=== PATIENT | female | born 1950 | race Caucasian/White ===

== ENCOUNTER 2018-03-01 07:46 | Outpatient (CLI) | payer MEDICARE ==
[2018-03-01] MEDS ORDERED: ISOVUE-370 76%-LOCM 1 ML ONE (15:14)
== END 2018-03-01 07:47 | disposition home or self-care (01) ==
LOC: BICULT 07:46
PROVIDERS: ATTEND Family Medicine
DX: I71.2 Thoracic aortic aneurysm, without rupture (principal); R10.13 Epigastric pain; G89.29 Other chronic pain; R10.11 Right upper quadrant pain
CPT/HCPCS: 71275; 76705

== ENCOUNTER 2018-11-02 12:09 | Emergency (ER) | payer MEDICARE ==
[2018-11-02] MEDS ORDERED: cefTRIAXone\\ROCEPHIN 1 GM VIAL ONE (13:28)
--- NOTE | 2018-11-02 15:13 | RAD ---
CHEST 2 VIEWS: History Cough. Dyspnea. COMPARISON: 03/01/2018. FINDINGS: Cardiac silhouette and pulmonary vasculature are unremarkable. Mediastinum is midline. No confluent airspace consolidation, pneumothorax, or pleural fluid. residential monitor leads overlie the chest. IMPRESSION: No active cardiopulmonary abnormalities are demonstrated. POS: [email or web address]
== END 2018-11-02 13:52 | disposition home or self-care (01) ==
LOC: ERS 12:09
DX: J20.9 Acute bronchitis, unspecified (principal); G43.909 Migraine, unspecified, not intractable, without status migrainosus; M06.9 Rheumatoid arthritis, unspecified
CPT/HCPCS: 71046; 96361; 96374; J0696; J7620

== ENCOUNTER 2020-10-25 13:43 | Outpatient (CLI) | payer MEDICARE ==
--- NOTE | 2020-10-25 14:37 | BD ---
DEXA BONE MINERAL DENSITY STUDY: HISTORY: Osteoporosis screening. COMPARISON: None. FINDINGS: Lumbar Spine: BMD (g/cm2) L1 1.021 T-Score: 0.3 2.2 L2 1.076 T-Score: 0.4 2.6 L3 1.061 T-Score: -0.2 2.1 L4 1.059 T-Score: 0.0 2.3 L1-L4 1.055 T-Score: 0.1 2.3 Femoral Neck: 0.754 T-Score: -0.9 1.0 Total Femur: 0.846 T-Score: -0.8 -0.8 WHO classification: Normal. Impression: Normal bone mineral density. POS: MARIELY
== END 2020-10-25 13:44 | disposition home or self-care (01) ==
LOC: BICMAMMO 13:43
PROVIDERS: ATTEND Internal Medicine Hospice and Palliative Medicine
DX: Z13.820 Encounter for screening for osteoporosis (principal); G89.29 Other chronic pain
CPT/HCPCS: 77080

== ENCOUNTER 2022-12-22 12:55 | Emergency (ER) | payer MEDICARE ==
[2022-12-22 13:42] LABS: #Monocytes 0.7 thou/uL (0.11-0.59); #Neutrophils 5.5 thou/uL (1.40-6.50); %Basophils 0.2 % (0.0-1.0); %Eosinophils 0.6 % (0.0-10.0); %Lymphocytes 13.5 % (21.0-51.0); %Monocytes 9.3 % (0.0-10.0); %Neutrophils 76.3 % (42.0-75.0); Hemoglobin 14.2 g/dL (12.0-16.0); Mean Corpuscular HGB CONC 32.9 g/dL (32.0-36.0); Mean Corpuscular Hemoglobin 30.2 pg (27.0-31.0); Mean Corpuscular Volume 91.6 fl (78.0-98.0); Mean Platelet Volume 8.2 fL (7.4-10.4); Platelet Count 268 10x3/uL (130-400); RBC Distribution Width 12.6 % (11.5-14.5); White Blood Cell (WBC) Count 7.2 10x3/uL (4.8-10.8)
[2022-12-22 14:09] LABS: ALT (SGPT) 13 U/L (8-55); AST (SGOT) 22 U/L (5-34); Albumin 4.2 g/dL (3.4-4.8); Alkaline Phosphatase 93 U/L (40-110); Anion Gap 15 mmol/L (10-20); BUN (Urea Nitrogen) 10 mg/dL (9.8-20.1); Bilirubin, Total 0.5 mg/dL (0.2-1.2); Calc. Creatinine Clearance 0 mL/min (70-130); Calcium 9.6 mg/dL (7.8-10.44); Carbon Dioxide 24 mmol/L (23-31); Chloride 104 mmol/L (98-107); Estimated GFR 71; Globulin 3.8 g/dL (2.4-3.5); Glucose 153 mg/dL (83-110); Potassium 4.5 mmol/L (3.5-5.1); Sodium 138 mmol/L (136-145)
[2022-12-22 15:34] LABS: Bacteria/HPF None Seen HPF (None Seen); Bilirubin Negative (Negative); Blood, Urine 2+ (Negative); Clarity Clear (Clear); Glucose, Urine (Dipstick) Normal (Negative); Ketone, Urine Trace mg/dL (Negative); Leukocyte Negative Leu/uL (Negative); Nitrite Negative (Negative); Protein, Urine (Dipstick) 50 mg/dL (Neg-Trace); Specific Gravity, Urine 1.034 (1.002-1.036); Squamous Epithelial 0-3 HPF (0-3); WBC/HPF 0-3 HPF (0-3)
[2022-12-22 16:18] LABS: SARS-CoV-2 NAA Rapid Test DETECTED (NotDetected)
[2022-12-22] MEDS ORDERED: Acetaminophen 500 MG TAB ONE (17:32)
== END 2022-12-22 18:15 | disposition home or self-care (01) ==
LOC: ERS 12:55
DX: U07.1 COVID-19 (principal); R31.9 Hematuria, unspecified; G43.909 Migraine, unspecified, not intractable, without status migrainosus
CPT/HCPCS: 0240U; 71045; 80053; 83605; 83880; 84484; 85025; 93005; 99285; 36415; 81003; 81015

== ENCOUNTER 2023-12-12 20:45 | Observation (INO) | payer MEDICARE ==
[~2023-12-12 20:45] MED LIST: Iopamidol-370 76% 500 ML MDV (1 ML CHARGE) ONE
[2023-12-12 23:05] LABS: #Basophils 0.1 thou/uL (0.0-0.2); #Eosinphils 0.1 thou/uL (0.0-0.7); #Monocytes 0.6 thou/uL (0.11-0.59); #Neutrophils 6.2 thou/uL (1.40-6.50); %Basophils 0.7 % (0.0-1.0); %Eosinophils 1.1 % (0.0-10.0); %Lymphocytes 14.9 % (21.0-51.0); %Monocytes 7.1 % (0.0-10.0); Hematocrit 36.7 % (36.0-47.0); Hemoglobin 11.8 g/dL (12.0-16.0); Mean Corpuscular HGB CONC 32.2 g/dL (32.0-36.0); Mean Corpuscular Hemoglobin 30.6 pg (27.0-31.0); Mean Corpuscular Volume 95.1 fl (78.0-98.0); Mean Platelet Volume 10.4 fL (7.4-10.4); Platelet Count 266 10x3/uL (130-400); RBC Distribution Width 13.6 % (11.5-14.5); Red Blood Cell (RBC) Count 3.86 mill/uL (4.20-5.40); White Blood Cell (WBC) Count 8.2 10x3/uL (4.8-10.8)
[2023-12-12 23:29] LABS: ALT (SGPT) 10 U/L (8-55); AST (SGOT) 13 U/L (5-34); Albumin 3.9 g/dL (3.4-4.8); Alkaline Phosphatase 90 U/L (40-110); Anion Gap 11 mmol/L (10-20); BUN (Urea Nitrogen) 11 mg/dL (9.8-20.1); Bilirubin, Total 0.4 mg/dL (0.2-1.2); Calc. Creatinine Clearance 0 mL/min (70-130); Calcium 9.1 mg/dL (7.8-10.44); Carbon Dioxide 24 mmol/L (23-31); Chloride 107 mmol/L (98-107); Estimated GFR 54; Globulin 3.1 g/dL (2.4-3.5); Glucose 139 mg/dL (83-110); Magnesium 2.1 mg/dL (1.6-2.6); Potassium 4.6 mmol/L (3.5-5.1); Sodium 137 mmol/L (136-145)
[2023-12-12 23:31] LABS: Troponin I Less than 0.010 ng/mL (< 0.028)
[2023-12-12] MEDS ORDERED: Morphine 4 MG/ML VIAL ONE (23:33)
[2023-12-13] MEDS ORDERED: Ondansetron PF 4 MG/2 ML Vial IVP PRN (01:58)
[2023-12-13 04:07] LABS: #Basophils 0.1 thou/uL (0.0-0.2); #Eosinphils 0.1 thou/uL (0.0-0.7); #Monocytes 0.7 thou/uL (0.11-0.59); #Neutrophils 4.9 thou/uL (1.40-6.50); %Basophils 0.8 % (0.0-1.0); %Eosinophils 1.3 % (0.0-10.0); %Lymphocytes 25.9 % (21.0-51.0); %Monocytes 8.5 % (0.0-10.0); %Neutrophils 63.2 % (42.0-75.0); Hemoglobin 11.5 g/dL (12.0-16.0); Mean Corpuscular HGB CONC 31.9 g/dL (32.0-36.0); Mean Platelet Volume 10.4 fL (7.4-10.4); Platelet Count 251 10x3/uL (130-400); RBC Distribution Width 13.5 % (11.5-14.5); Red Blood Cell (RBC) Count 3.83 mill/uL (4.20-5.40); White Blood Cell (WBC) Count 7.7 10x3/uL (4.8-10.8)
[2023-12-13 04:28] LABS: Bacteria/HPF None Seen HPF (None Seen); Bilirubin Negative (Negative); Blood, Urine Negative (Negative); CAUTI Indications for Culture Alt mental st,lethar; Clarity Clear (Clear); Glucose, Urine (Dipstick) Normal (Negative); Ketone, Urine Negative (Negative); Leukocyte Negative Leu/uL (Negative); Nitrite Negative (Negative); Protein, Urine (Dipstick) Negative (Neg-Trace); RBC/HPF 0-3 HPF (0-3); Specific Gravity, Urine 1.042 (1.002-1.036); Squamous Epithelial 0-3 HPF (0-3); WBC/HPF 0-3 HPF (0-3); pH, Urine 8.5 (5.0-9.0)
[2023-12-13 04:30] LABS: Anion Gap 12 mmol/L (10-20); BUN (Urea Nitrogen) 13 mg/dL (9.8-20.1); Calc. Creatinine Clearance 78 mL/min (70-130); Carbon Dioxide 24 mmol/L (23-31); Chloride 106 mmol/L (98-107); Estimated GFR 59; Glucose 132 mg/dL (83-110); Potassium 4.6 mmol/L (3.5-5.1); Sodium 137 mmol/L (136-145)
[2023-12-13 04:35] LABS: Urine Culture Reflex No No
[2023-12-13] MEDS ORDERED: Nitroglycerin 0.4 MG TAB (25 Tab Bottle) SL PRN (05:15)
[2023-12-13 08:41] LABS: Troponin I Less than 0.010 ng/mL (< 0.028)
[2023-12-13] MEDS ORDERED: Clopidogrel Bisulfate 75 MG TAB ONE (08:46)
[2023-12-13] MEDS ORDERED: Lisinopril 5 MG TAB ONE (08:46)
[2023-12-13] MEDS ORDERED: Carvedilol 6.25 MG TAB ONE (08:46)
[2023-12-13] MEDS ORDERED: Aspirin Chewable 81 MG TAB ONE (08:47)
[2023-12-13] MEDS: Carvedilol 3.125 MG TAB PO SCH (08:56)
[2023-12-13] MEDS: Aspirin 81 mg Enteric Coated Tablet PO SCH (08:57)
[2023-12-13] MEDS: Lisinopril 2.5 MG TAB PO SCH (08:57)
[2023-12-13] MEDS: Clopidogrel Bisulfate 75 MG TAB PO SCH (08:57)
[2023-12-13] MEDS ORDERED: hydrALAZINE 20 MG/ML VIAL SLOW IVP PRN (10:27)
[2023-12-13 13:21] LABS: Troponin I Less than 0.010 ng/mL (< 0.028)
[2023-12-13 14:22] VITALS: BMI 31.1
[2023-12-13] MEDS: Atorvastatin Calcium 40 MG TAB PO SCH (20:55)
[2023-12-14] MEDS: Acetaminophen 325 MG TAB PO PRN (05:38)
[2023-12-14 05:52] LABS: #Eosinphils 0.1 thou/uL (0.0-0.7); #Monocytes 0.7 thou/uL (0.11-0.59); #Neutrophils 4.8 thou/uL (1.40-6.50); %Basophils 0.6 % (0.0-1.0); %Eosinophils 1.3 % (0.0-10.0); %Lymphocytes 20.3 % (21.0-51.0); %Monocytes 9.6 % (0.0-10.0); %Neutrophils 67.9 % (42.0-75.0); Mean Corpuscular HGB CONC 31.6 g/dL (32.0-36.0); Mean Corpuscular Hemoglobin 29.7 pg (27.0-31.0); Mean Corpuscular Volume 94.1 fl (78.0-98.0); Mean Platelet Volume 10.2 fL (7.4-10.4); Platelet Count 247 10x3/uL (130-400); RBC Distribution Width 13.6 % (11.5-14.5); Red Blood Cell (RBC) Count 4.04 mill/uL (4.20-5.40); White Blood Cell (WBC) Count 7.1 10x3/uL (4.8-10.8)
[2023-12-14 06:23] LABS: Anion Gap 12 mmol/L (10-20); BUN (Urea Nitrogen) 12 mg/dL (9.8-20.1); Calc. Creatinine Clearance 99 mL/min (70-130); Calcium 9.2 mg/dL (7.8-10.44); Carbon Dioxide 24 mmol/L (23-31); Chloride 104 mmol/L (98-107); Estimated GFR 81; Glucose 141 mg/dL (83-110); Sodium 136 mmol/L (136-145)
[2023-12-14] MEDS: Enoxaparin 40 MG (0.4 mL) SYRINGE SC SCH (08:18)
[2023-12-14] MEDS: Methocarbamol 500 MG TAB PO PRN (10:34)
[2023-12-14] MEDS: Fioricet 325/50/40 mg Tablet PO PRN (10:34)
[2023-12-14 12:03] VITALS: TEMP 97.8
[2023-12-14 16:00] VITALS: BP 127/77
== END 2023-12-14 16:55 | disposition home or self-care (01) ==
LOC: ERS 20:45 → ERHOLD 12-13 01:45 → 2SW 12-13 13:37
PROVIDERS: ADMIT Internal Medicine; ATTEND Internal Medicine
PROC: B24BZZZ Ultrasonography of Heart with Aorta (ICD-10-PCS; principal; 2023-12-14)
DX: I25.10 Atherosclerotic heart disease of native coronary artery without angina pectoris (principal); I11.0 Hypertensive heart disease with heart failure; I50.32 Chronic diastolic (congestive) heart failure; I25.2 Old myocardial infarction; E78.5 Hyperlipidemia, unspecified; G43.909 Migraine, unspecified, not intractable, without status migrainosus; G89.29 Other chronic pain; M54.9 Dorsalgia, unspecified; D64.9 Anemia, unspecified; E66.9 Obesity, unspecified; Z68.30 Body mass index [BMI] 30.0-30.9, adult; Z79.82 Long term (current) use of aspirin; Z79.899 Other long term (current) drug therapy
CPT/HCPCS: 36415; 70450; 70551; 71045; 71275; 74174; 80048; 80053; 81001; 83735; 83880; 84484; 85025; 93005; 93306; 93880; G0378; J1650; J2270; Q9967

== ENCOUNTER → 2024-03-19 | Outpatient (CLI) | payer MEDICARE | LOC: PET 10:15 | PROVIDERS: ATTEND Internal Medicine Critical Care Medicine | DX: R91.8 Other nonspecific abnormal finding of lung field (principal) | CPT/HCPCS: 78815; A9552 ==